=== PATIENT | male | born 1990 | race American Indian/Alaskan Native ===

== ENCOUNTER 2016-11-17 01:45 | Inpatient (IN) | payer OTHER ==
[2016-11-17] MEDS ORDERED: ZOFRAN ODT ONE (02:00)
[2016-11-17] MEDS ORDERED: ZOFRAN ODT PO ONE (02:00)
[2016-11-17 02:58] LABS: Hematocrit 48.6 % (35.5-45.6); Hemoglobin 16.2 gm/dl (11.8-15.2); Mean Corpuscular HGB Conc 33 % (32-34); Mean Corpuscular Hemoglobin 29 pg (28-32); Mean Corpuscular Volume 86 fl (84-94); Red Blood Count 5.68 M/mm3 (3.65-5.03); Red Cell Distribution Width 13.9 % (13.2-15.2)
[2016-11-17 03:08] LABS: Platelet Count 238 K/mm3 (140-440); White Blood Count 23.2 K/mm3 (4.5-11.0)
[2016-11-17 03:10] LABS: Bilirubin,Urine NEG (Negative); Blood,Urine SM (Negative); Ketones,Urine 20 mg/dL (Negative); Leukocyte Esterase,Urine NEG (Negative); Nitrite,Urine NEG (Negative); Protein,Urine <15 mg/dL mg/dL (Negative); Urobilinogen,Urine < 2.0 mg/dL (<2.0)
[2016-11-17 03:11] LABS: Alanine Aminotransferase 20 units/L (7-56); Albumin 4.9 g/dL (3.9-5); Albumin/Globulin Ratio 1.2 %; Alkaline Phosphatase 124 units/L (35-129); Anion Gap 36 mmol/L; BUN/Creatinine Ratio 22.14; Blood Urea Nitrogen 31 mg/dL (9-20); Calcium 10.9 mg/dL (8.4-10.2); Carbon Dioxide 21 mmol/L (22-30); Chloride 89.3 mmol/L (98-107); Lipase 18 units/L (13-60); Sodium 142 mmol/L (137-145); Total Protein 8.9 g/dL (6.3-8.2)
[2016-11-17 03:12] LABS: Glucose 588 mg/dL (75-100)
[2016-11-17 03:30] LABS: Basophils % (Manual) 0 % (0.0-1.8); Blastocytes % (Manual) 0 %; Eosinophils % (Manual) 0 % (0.0-4.3)
[2016-11-17 03:31] LABS: Anisocytosis 1+; Diff Status Complete; Giant Platelets Few; Hypochromasia 1+
[2016-11-17 03:32] LABS: Hypersegmented Neutrophils Few
[2016-11-17] MEDS ORDERED: NACL 0.9% 500 ML 500 ML IV ONE (03:53)
[2016-11-17] MEDS ORDERED: NACL 0.9% 1000 ML 2,000 ML ONE (03:57)
[2016-11-17] MEDS ORDERED: NACL 0.9% 1000 ML 2,000 ML IV ONE (03:57)
[2016-11-17] MEDS ORDERED: ZOFRAN ONE (04:16)
[2016-11-17] MEDS ORDERED: ZOFRAN IV ONE ×2 (04:18→05:21)
[2016-11-17 04:51] LABS: INR 1.13 (0.87-1.13)
[2016-11-17] MEDS ORDERED: D50W (25GM) IV PRN ×2 (05:17→05:54)
[2016-11-17] MEDS ORDERED: MORPHINE IV ONE (05:21)
--- NOTE | 2016-11-17 05:26 | Emergency Department Report ---
HPI - General Chief Complaint: Abdominal Pain - HPI HPI: Room 3 The patient is a 23-year-old male presenting with chief complaint of nausea vomiting abdominal pain. The patient states his symptoms began yesterday morning with inability to tolerate by mouth significant nausea. Patient states his symptoms progress dictating have periumbilical abdominal pain nausea and vomiting. The patient states he normally takes Levemir and Humalog however he ran out and did not have a refill so 2 weeks ago he picked up insulin 70/30 which she was taking prior to being changed to Levemir and Humalog. Patient states his abdominal pain feels similar to previous bouts of diabetic ketoacidosis Location: Gastrointestinal system, see above Duration: One day Quality: Pain, nausea Severity: Moderate Modifying factors: [see above] Context: [see above] Mode of transportation: Unknown ED Past Medical Hx - Past Medical History Previous Medical History?: Yes Hx Diabetes: Yes - Surgical History Past Surgical History?: No - Family History Family history: no significant - Social History Smoking Status: Never Smoker Substance Use Type: None - Medications Home Medications: Home Medications Medication Instructions Recorded Confirmed Last Taken Type Insulin Detemir [Levemir VIAL] 20 unit SQ DAILY 11/17/16 11/17/16 Unknown History Insulin Lispro [HumaLOG VIAL] 7 units SQ TID 11/17/16 11/17/16 Unknown History ED Review of Systems ROS: Stated complaint: N&V Other details as noted in HPI Comment: All other systems reviewed and negative Constitutional: denies: chills, fever Eyes: denies: eye pain, eye discharge, vision change ENT: other (dry mouth) Respiratory: denies: cough, shortness of breath, wheezing Cardiovascular: denies: chest pain, palpitations Endocrine: no symptoms reported Gastrointestinal: abdominal pain, nausea, vomiting Genitourinary: denies: urgency, dysuria Musculoskeletal: denies: back pain, joint swelling, arthralgia Skin: denies: rash, lesions Neurological: denies: headache, weakness, paresthesias Psychiatric: denies: anxiety, depression Hematological/Lymphatic: denies: easy bleeding, easy bruising Physical Exam - Physical Exam Vital Signs: Vital Signs 11/17/16 11/17/16 01:50 04:08 Temperature 99.9 F H Pulse Rate 108 H 123 H Respiratory 20 22 Rate Blood Pressure 157/100 166/88 [Right] O2 Sat by Pulse 96 98 Oximetry Physical Exam: GENERAL: The patient is well-developed well-nourished male lying on stretcher appearing to be in mild discomfort. [] HEENT: Normocephalic. Atraumatic. Extraocular motions are intact. Patient has dry mucous membranes. NECK: Supple. Trachea midline CHEST/LUNGS: Clear to auscultation. There is no respiratory distress noted. HEART/CARDIOVASCULAR: Regular. There is no tachycardia. There is no gallop rub or murmur. ABDOMEN: Abdomen is soft, nontender. Patient has normal bowel sounds. There is no abdominal distention. SKIN: There is no rash. There is no edema. There is no diaphoresis. NEURO: The patient is awake, alert, and oriented. The patient is cooperative. The patient has normal speech MUSCULOSKELETAL: There is no evidence of acute injury. ED Course Vital Signs 11/17/16 11/17/16 01:50 04:08 Temperature 99.9 F H Pulse Rate 108 H 123 H Respiratory 20 22 Rate Blood Pressure 157/100 166/88 [Right] O2 Sat by Pulse 96 98 Oximetry ED Medical Decision Making - Lab Data Result diagrams: 11/17/16 02:30 11/17/16 02:30 Laboratory Tests 11/17/16 11/17/16 11/17/16 01:55 02:30 02:30 WBC 23.2 H RBC 5.68 H Hgb 16.2 H Hct 48.6 H MCV 86 MCH 29 MCHC 33 RDW 13.9 Plt Count 238 Add Manual Diff Complete Total Counted 100 Seg Neuts % (Manual) 81.0 H Band Neutrophils % 3.0 Lymphocytes % (Manual) 7.0 L Reactive Lymphs % (Man) 0 Monocytes % (Manual) 9.0 H Eosinophils % (Manual) 0 Basophils % (Manual) 0 Metamyelocytes % 0 Myelocytes % 0 Promyelocytes % 0 Blast Cells % 0 Nucleated RBC % Not Reportable Seg Neutrophils # Man 18.8 H Band Neutrophils # 0.7 Lymphocytes # (Manual) 1.6 Abs React Lymphs (Man) 0.0 Monocytes # (Manual) 2.1 H Eosinophils # (Manual) 0.0 Basophils # (Manual) 0.0 Metamyelocytes # 0.0 Myelocytes # 0.0 Promyelocytes # 0.0 Blast Cells # 0.0 WBC Morphology Not Reportable Hypersegmented Neuts Few Hyposegmented Neuts Not Reportable Hypogranular Neuts Not Reportable Smudge Cells Not Reportable Toxic Granulation Not Reportable Toxic Vacuolation Not Reportable Dohle Bodies Not Reportable Pelger-Huet Anomaly Not Reportable [place] Rods Not Reportable Platelet Estimate Appears normal Clumped Platelets Not Reportable Plt Clumps, EDTA Not Reportable Large Platelets Not Reportable Giant Platelets Few Platelet Satelliting Not Reportable Plt Morphology Comment Not Reportable RBC Morphology Not Reportable Dimorphic RBCs Not Reportable Polychromasia Not Reportable Hypochromasia 1+ Poikilocytosis Not Reportable Anisocytosis 1+ Microcytosis Not Reportable Macrocytosis Not Reportable Spherocytes Not Reportable Pappenheimer Bodies Not Reportable Sickle Cells Not Reportable Target Cells Not Reportable Tear Drop Cells Not Reportable Ovalocytes Not Reportable Helmet Cells Not Reportable Boyle-Filer Bodies Not Reportable [place] Rings Not Reportable [place] Cells Not Reportable Bite Cells Not Reportable Crenated Cell Not Reportable Elliptocytes Not Reportable Acanthocytes (Spur) Not Reportable Rouleaux Not Reportable Hemoglobin C Crystals Not Reportable Schistocytes Not Reportable Malaria parasites Not Reportable Hayden Bodies Not Reportable Hem Pathologist Commnt No PT INR VBG pH Sodium 142 Potassium 4.0 Chloride 89.3 L Carbon Dioxide 21 L Anion Gap 36 BUN 31 H Creatinine 1.4 Estimated GFR > 60 BUN/Creatinine Ratio 22.14 Glucose 588 H* POC Glucose > 500 H Lactic Acid Calcium 10.9 H Total Bilirubin 0.40 AST 26 ALT 20 Alkaline Phosphatase 124 Total Protein 8.9 H Albumin 4.9 Albumin/Globulin Ratio 1.2 Lipase 18 Urine Color Urine Turbidity Urine pH Ur Specific [place] Urine Protein Urine Glucose (UA) Urine Ketones Urine Blood Urine Nitrite Urine Bilirubin Urine Urobilinogen Ur Leukocyte Esterase Urine WBC (Auto) Urine RBC (Auto) U Epithel Cells (Auto) 11/17/16 11/17/16 11/17/16 04:09 04:09 04:09 WBC RBC Hgb Hct MCV MCH MCHC RDW Plt Count Add Manual Diff Total Counted Seg Neuts % (Manual) Band Neutrophils % Lymphocytes % (Manual) Reactive Lymphs % (Man) Monocytes % (Manual) Eosinophils % (Manual) Basophils % (Manual) Metamyelocytes % Myelocytes % Promyelocytes % Blast Cells % Nucleated RBC % Seg Neutrophils # Man Band Neutrophils # Lymphocytes # (Manual) Abs React Lymphs (Man) Monocytes # (Manual) Eosinophils # (Manual) Basophils # (Manual) Metamyelocytes # Myelocytes # Promyelocytes # Blast Cells # WBC Morphology Hypersegmented Neuts Hyposegmented Neuts Hypogranular Neuts Smudge Cells Toxic Granulation Toxic Vacuolation Dohle Bodies Pelger-Huet Anomaly Ky Rods Platelet Estimate Clumped Platelets Plt Clumps, EDTA Large Platelets Giant Platelets Platelet Satelliting Plt Morphology Comment RBC Morphology Dimorphic RBCs Polychromasia Hypochromasia Poikilocytosis Anisocytosis Microcytosis Macrocytosis Spherocytes Pappenheimer Bodies Sickle Cells Target Cells Tear Drop Cells Ovalocytes Helmet Cells Boyle-Filer Bodies [place] Rings Valdez Cells Bite Cells Crenated Cell Elliptocytes Acanthocytes (Spur) Rouleaux Hemoglobin C Crystals Schistocytes Malaria parasites Hayden Bodies Hem Pathologist Commnt PT 14.4 INR 1.13 VBG pH 7.305 L Sodium Potassium Chloride Carbon Dioxide Anion Gap BUN Creatinine Estimated GFR BUN/Creatinine Ratio Glucose POC Glucose Lactic Acid 6.00 H* Calcium Total Bilirubin AST ALT Alkaline Phosphatase Total Protein Albumin Albumin/Globulin Ratio Lipase Urine Color Urine Turbidity Urine pH Ur Specific [place] Urine Protein Urine Glucose (UA) Urine Ketones Urine Blood Urine Nitrite Urine Bilirubin Urine Urobilinogen Ur Leukocyte Esterase Urine WBC (Auto) Urine RBC (Auto) U Epithel Cells (Auto) 11/17/16 Unknown WBC RBC Hgb Hct MCV MCH MCHC RDW Plt Count Add Manual Diff Total Counted Seg Neuts % (Manual) Band Neutrophils % Lymphocytes % (Manual) Reactive Lymphs % (Man) Monocytes % (Manual) Eosinophils % (Manual) Basophils % (Manual) Metamyelocytes % Myelocytes % Promyelocytes % Blast Cells % Nucleated RBC % Seg Neutrophils # Man Band Neutrophils # Lymphocytes # (Manual) Abs React Lymphs (Man) Monocytes # (Manual) Eosinophils # (Manual) Basophils # (Manual) Metamyelocytes # Myelocytes # Promyelocytes # Blast Cells # WBC Morphology Hypersegmented Neuts Hyposegmented Neuts Hypogranular Neuts Smudge Cells Toxic Granulation Toxic Vacuolation Dohle Bodies Pelger-Huet Anomaly Ky Rods Platelet Estimate Clumped Platelets Plt Clumps, EDTA Large Platelets Giant Platelets Platelet Satelliting Plt Morphology Comment RBC Morphology Dimorphic RBCs Polychromasia Hypochromasia Poikilocytosis Anisocytosis Microcytosis Macrocytosis Spherocytes Pappenheimer Bodies Sickle Cells Target Cells Tear Drop Cells Ovalocytes Helmet Cells Boyle-Filer Bodies [place] Rings [place]dez Cells Bite Cells Crenated Cell Elliptocytes Acanthocytes (Spur) Rouleaux Hemoglobin C Crystals Schistocytes Malaria parasites Hayden Bodies Hem Pathologist Commnt PT INR VBG pH Sodium Potassium Chloride Carbon Dioxide Anion Gap BUN Creatinine Estimated GFR BUN/Creatinine Ratio Glucose POC Glucose Lactic Acid Calcium Total Bilirubin AST ALT Alkaline Phosphatase Total Protein Albumin Albumin/Globulin Ratio Lipase Urine Color Straw Urine Turbidity Clear Urine pH 5.0 Ur Specific [place] 1.025 Urine Protein <15 mg/dl Urine Glucose (UA) >=500 Urine Ketones 20 Urine Blood Sm Urine Nitrite Neg Urine Bilirubin Neg Urine Urobilinogen < 2.0 Ur Leukocyte Esterase Neg Urine WBC (Auto) 2.0 Urine RBC (Auto) 1.0 U Epithel Cells (Auto) < 1.0 - EKG Data -: EKG Interpreted by Me EKG shows normal: sinus rhythm Rate: tachycardia (129 bpm) - EKG Data When compared to previous EKG there are: previous EKG unavailable Interpretation: other (no ischemic changes seen) - Differential Diagnosis DKA, hyperglycemia, hyperosmolar nonketotic state Critical care attestation.: If time is entered above; I have spent that time in minutes in the direct care of this critically ill patient, excluding procedure time. ED Disposition Clinical Impression: DKA (diabetic ketoacidoses) Disposition: [id number] OP ADMIT IP TO THIS HOSP Is pt being admited?: Yes Does the pt Need Aspirin: Yes Condition: Serious Instructions: Diabetic Ketoacidosis (ED) Referrals: PRIMARY CARE, [Primary Care Provider] - 3-5 Days Time of Disposition: 05:26 (hospitalist paged)
[2016-11-17] MEDS ORDERED: TYLENOL PO PRN (05:51)
[2016-11-17] MEDS ORDERED: MILK OF MAGNESIA PO PRN (05:51)
[2016-11-17] MEDS ORDERED: DULCOLAX PR PRN (05:51)
[2016-11-17] MEDS ORDERED: NACL 0.9% 1000 ML 1,000 ML IV SCH (06:00)
[2016-11-17] MEDS ORDERED: NovoLIN R 100 UNITS in NACL 0.9% 99 ML IV SCH ×2 (06:00)
[2016-11-17 06:10] LABS: Magnesium 2.4 mg/dL (1.7-2.3); Phosphorous 4.3 mg/dL (2.5-4.5)
--- NOTE | 2016-11-17 06:22 | History and Physical Report ---
History of Present Illness Date of examination: 11/17/16 History of present illness: 26-year-old man with a history of hypertension, diabetes comes emergency room with complaints of nausea vomiting, unable to tolerate oral intake. Stated vomited arm orange and then brown material. He stated he ran out of his Levemir 2 weeks ago, since then he's been taking insulin 7030. Patient stated he has not been checking his blood sugar at home. Complaints of abdominal pain , mid abdomen, dull, constant, intensity 6/10, no radiation, he cannot identify exacerbating or relieving factors. Patient denies chest pain, palpitation, shortness of breath, cough, , hematochezia, dysuria, frequency, focal weakness, dysarthria, fever chills, polydipsia polyuria, hot or cold intolerance, easy bruisability, or rash or bleeding from mucosal membrane, rhinorrhea, epistaxis, earache, tinnitus, blurry vision, eye discharge, anxiety, depression. Other review of systems negative PAST SURGICAL HISTORY: None SOCIAL HISTORY: Denies alcohol, tobacco, drugs FAMILY HISTORY: Hypertension, diabetes Medications and Allergies Allergies Allergy/AdvReac Type Severity Reaction Status Date / Time No Known Allergies Allergy Verified 11/17/16 01:56 Home Medications Medication Instructions Recorded Confirmed Last Taken Type Insulin Detemir [Levemir VIAL] 20 unit SQ DAILY 11/17/16 11/17/16 Unknown History Insulin Lispro [HumaLOG VIAL] 7 units SQ TID 11/17/16 11/17/16 Unknown History Active Meds: Active Medications Acetaminophen (Tylenol) 650 mg PO Q4H PRN PRN Reason: Pain MILD(1-3)/Fever >100.5/GABRIEL Bisacodyl (Dulcolax) 10 mg MD QDAY PRN PRN Reason: Constipation unrelieved by MOM Dextrose (D50w (25gm)) 0 ml IV ONCE PRN PRN Reason: Hypoglycemia Enoxaparin Sodium (Lovenox) 40 mg SUB-Q QDAY HUANG Ceftriaxone Sodium (Rocephin/Ns 1 Gm/50 Ml) 1 gm in 50 mls @ 100 mls/hr IV Q24H HUANG PRN Reason: Protocol Potassium Chloride/Dextrose/Sod Cl (D5w/0.45% Nacl/Kcl 20 Meq) 20 meq in 1,000 mls @ 125 mls/hr IV DIRECT HUANG Sodium Chloride (Nacl 0.9% 1000 Ml) 1,000 mls @ 150 mls/hr IV DIRECT HUANG Insulin Human Regular 100 (units/ Sodium Chloride) 100 mls @ 1 mls/hr IV TITR HUANG; 1 UNITS/HR PRN Reason: Protocol Magnesium Hydroxide (Milk Of Magnesia) 30 ml PO Q4H PRN PRN Reason: Constipation Morphine Sulfate (Morphine) 2 mg IV Q4H PRN PRN Reason: Pain, Moderate (4-6) Ondansetron HCl (Zofran) 4 mg IV Q4H PRN PRN Reason: N/V unrelieved by Reglan Exam - Physical Exam Narrative exam: Gen. appearance: Patient lying in bed, no apparent distress HEENT: Normocephalic, atraumatic, pupils equally round and reactive to light, extraocular movement intact, and no sclericterus,. No JVD or thyromegaly or nodule,neck supple, no carotid bruit ,mucous membranes moist, no exudate or erythema Heart: S1, S2, regular rate and rhythm Lungs: Clear to auscultation bilaterally, breathing comfortable Abdomen: Positive bowel sounds, tender in mid abdomen, nondistended, no organomegaly Extremity: No edema, cyanosis, clubbing Skin: No rash, nodules, warm, dry Neuro: Oriented 3, cranial nerves II-12 intact, speech is fluent, motor and sensory intact - Constitutional Vitals: Temp Pulse Resp BP Pulse Ox 99.9 F H 123 H 22 166/88 98 11/17/16 01:50 11/17/16 04:08 11/17/16 04:08 11/17/16 04:08 11/17/16 04:08 Results - Labs CBC & Chem 7: 11/17/16 02:30 11/17/16 02:30 Labs: Abnormal lab results 11/17/16 11/17/16 11/17/16 Range/Units 01:55 02:30 02:30 WBC 23.2 H (4.5-11.0) K/mm3 RBC 5.68 H (3.65-5.03) M/mm3 Hgb 16.2 H (11.8-15.2) gm/dl Hct 48.6 H (35.5-45.6) % Seg Neuts % (Manual) 81.0 H (40.0-70.0) % Lymphocytes % (Manual) 7.0 L (13.4-35.0) % Monocytes % (Manual) 9.0 H (0.0-7.3) % Seg Neutrophils # Man 18.8 H (1.8-7.7) K/mm3 Monocytes # (Manual) 2.1 H (0.0-0.8) K/mm3 VBG pH (7.320-7.420) Chloride 89.3 L (98-107) mmol/L Carbon Dioxide 21 L (22-30) mmol/L BUN 31 H (9-20) mg/dL Glucose 588 H* (75-100) mg/dL POC Glucose > 500 H (70-105) Lactic Acid (0.7-2.0) mmol/L Calcium 10.9 H (8.4-10.2) mg/dL Magnesium (1.7-2.3) mg/dL Total Protein 8.9 H (6.3-8.2) g/dL 11/17/16 11/17/16 11/17/16 Range/Units 02:30 04:09 04:09 WBC (4.5-11.0) K/mm3 RBC (3.65-5.03) M/mm3 Hgb (11.8-15.2) gm/dl Hct (35.5-45.6) % Seg Neuts % (Manual) (40.0-70.0) % Lymphocytes % (Manual) (13.4-35.0) % Monocytes % (Manual) (0.0-7.3) % Seg Neutrophils # Man (1.8-7.7) K/mm3 Monocytes # (Manual) (0.0-0.8) K/mm3 VBG pH 7.305 L (7.320-7.420) Chloride (98-107) mmol/L Carbon Dioxide (22-30) mmol/L BUN (9-20) mg/dL Glucose (75-100) mg/dL POC Glucose (70-105) Lactic Acid 6.00 H* (0.7-2.0) mmol/L Calcium (8.4-10.2) mg/dL Magnesium 2.40 H (1.7-2.3) mg/dL Total Protein (6.3-8.2) g/dL 11/17/16 Range/Units 05:39 WBC (4.5-11.0) K/mm3 RBC (3.65-5.03) M/mm3 Hgb (11.8-15.2) gm/dl Hct (35.5-45.6) % Seg Neuts % (Manual) (40.0-70.0) % Lymphocytes % (Manual) (13.4-35.0) % Monocytes % (Manual) (0.0-7.3) % Seg Neutrophils # Man (1.8-7.7) K/mm3 Monocytes # (Manual) (0.0-0.8) K/mm3 VBG pH (7.320-7.420) Chloride (98-107) mmol/L Carbon Dioxide (22-30) mmol/L BUN (9-20) mg/dL Glucose (75-100) mg/dL POC Glucose 479 H (70-105) Lactic Acid (0.7-2.0) mmol/L Calcium (8.4-10.2) mg/dL Magnesium (1.7-2.3) mg/dL Total Protein (6.3-8.2) g/dL - Imaging and Cardiology EKG: image reviewed Chest x-ray: image reviewed Assessment and Plan DKA SIRS Abdominal pain Hypertension Admit to medicine Start dka protocol with IV fluids, insulin drip Check serial chemistry, blood sugar, hemoglobin A1c Obtain blood cultures, start IV antibiotic Obtain CAT scan of the abdomen and pelvis Start IV Protonix Hold DVT prophylaxis for now, patient vomiting brown material transiently Monitor hemoglobin
[2016-11-17] MEDS: ROCEPHIN/NS 1 GM/50 ML 1 GM/50 ML BAG IV SCH (06:37)
[2016-11-17] MEDS ORDERED: PROTONIX IV ONE (06:49)
--- NOTE | 2016-11-17 06:50 | Admit Criteria Form ---
Admission Criteria Documentation: DIABETES Clinical Indications for Admission to Inpatient Care (Place 'X' for any and all applicable criteria): Admission is indicated by presence of ALL (if I & II) or ANY ONE (if III or IV) of the following (1)(2)(3)(4): [ X]I. Diabetes is uncontrolled as indicated by ANY ONE of the following: [X ]a) Diabetic ketoacidosis as indicated by ALL of the following (8): [ X]i) Hyperglycemia (eg, plasma glucose greater than 200 mg /dL (11.1 mmol/L)) [X ]ii) Acidosis (eg, arterial pH less than 7.30, serum bicarbonate level less than 15 mEq/L (mmol/L)) [ X]iii) Moderate ketonuria or ketonemia [ ]b) Hyperglycemic hyperosmolar state as indicated by ALL of the following(9)(10): [ ]i) Neurologic dysfunction (eg, stupor, coma, hemiparesis , seizure)(13) [ ]ii) Plasma glucose greater than 600 mg/dL (33.3 mmol/L) [ ]iii) Serum osmolality greater than 320 mOsm/kg (mmol/kg) [ ]c) Severe signs or symptoms secondary to hyperglycemia indicated by ANY ONE of the following: [ ]i) Altered mental status(10) [ ]ii) Significant hypovolemia or dehydration [ ]iii) Intractable nausea or vomiting [ ]iv) Unexplained fever or severe infection [ ]v) Severe electrolyte abnormality (eg, hypokalemia, hyperkalemia, hypernatremia) [ X]IXI. Management at other levels of care (Also use Diabetes: Observation Care as appropriate) is not feasible because of ANY ONE of the following: [ X]a) Condition was not adequately corrected with treatment at other levels of care. [ ]b) Treatment at other levels of care is not appropriate because of condition severity (eg, hyperosmolar coma). [ ]III. Contraindications and/or Inappropriate clinical situations for Observational Care in patients with Diabetes, when ANY ONE of the following is required: [ ]a) Patient require specific diagnostic workup or therapeutic intervention 22 [ ]b) Patient with abnormal vital signs or altered mental status 23 [ ]IV. General contraindications and/or Inappropriate clinical situations for Observational Care in patients with Diabetes, when ANY ONE of the following is required: [ ]a) Prediction of prolongation of LOS based on ANY ONE of the following may be considered as a contraindication for observational care 2, 3, 4, 5, 6, 7, 8, 9, 10, 11 [ ]i) Age > 65 yrs. [ ]ii) Patient arriving by ambulance [ ]iii) Patient with high acuity [ ]iv) Patient requiring vital sign monitoring [ ]v) Patient on IV medication [ ]b) Systolic blood pressures 180mmHg 3,12 [ ]c) Patient with altered mental status including delirium and other alteration of consciousness, (3) [ ]d) Patient whose discharge disposition will be to a correction home or rehabilitation home should not be managed in Emergency Department Observation Unit. CMS rule requires 3 days hospital stay before such placement.3,13 [ ]e) Patient with failure to thrive due to broad array of etiologies 3,16,17 [ ]f) Inability to ambulate 3,14 Extended stay beyond goal length of stay may be needed for(3)(20): [ ]a) Treatment of precipitating causes [ ]b) Development of hypoglycemia [ ]c) Complications of treatment [ ]d) Complications of decompensated diabetes (eg, acute gastric dilatation, persistent metabolic or neurologic derangement) [ ]e) Active Comorbidities [ ]f) Older patients( 65 years or older) The original [facility] content created by [employer] has been revised. The portions of the content which have been revised are identified through the use of italic text or in bold,and [facility] has neither reviewed nor approved the modified material. All other unmodified content is copyright [facility]. Please see references footnoted in the original [facility] edition 2016 Admission Criteria Met: Yes
[2016-11-17] MEDS: PROTONIX IV SCH ×2 (06:54→11:27)
--- NOTE | 2016-11-17 07:13 | Cat Scan Report ---
FINAL REPORT PROCEDURE: CT ABDOMEN PELVIS WO CON TECHNIQUE: Computerized axial tomography of the abdomen and pelvis was performed without intravenous contrast. This study is performed without intravascular contrast material and its sensitivity for abdominal and pelvic pathology, including neoplasms, inflammation, abscess, free fluid, thrombosis, arterial dissection and infarction, is reduced compared with a contrast enhanced study. HISTORY: abd pain COMPARISON: No prior studies are available for comparison. FINDINGS: Visualized lower thorax: No significant abnormality. Liver: Normal size and attenuation. Spleen: Normal size and attenuation. Gallbladder and biliary system: Normal. Pancreas: Normal. Adrenals: Normal. Kidneys: There are no kidney stones. There are no ureteral stones. There is no hydronephrosis.. GI tract: There is no bowel obstruction, colitis or enteritis. The appendix is normal.. Lymph nodes and mesentery: Normal. Vasculature: Normal. Bladder: Normal. Reproductive organs: Normal. Peritoneum: There is no ascites, free air, abscess or adenopathy.. Musculoskeletal structures: No significant abnormality. Other: None. IMPRESSION: There are no kidney stones. There are no ureteral stones. There is no hydronephrosis.. There is no bowel obstruction, colitis or enteritis. The appendix is normal.. There is no ascites, free air, abscess or adenopathy.. .
--- NOTE | 2016-11-17 07:18 | XRay Report ---
AP CHEST: HISTORY: Sepsis AP view of the chest demonstrates a normal mediastinal and cardiac contour with clear lungs and normal bony and soft tissue structures. IMPRESSION: Unremarkable AP chest.
[2016-11-17 10:10] LABS: Anion Gap 24 mmol/L; BUN/Creatinine Ratio 26.42; Blood Urea Nitrogen 37 mg/dL (9-20); Calcium 9.1 mg/dL (8.4-10.2); Carbon Dioxide 25 mmol/L (22-30); Chloride 104.3 mmol/L (98-107); Glucose 383 mg/dL (75-100); Potassium 3.5 mmol/L (3.6-5.0); Sodium 150 mmol/L (137-145)
[2016-11-17 10:54] LABS: Anion Gap 24 mmol/L; BUN/Creatinine Ratio 26.42; Blood Urea Nitrogen 37 mg/dL (9-20); Calcium 9.1 mg/dL (8.4-10.2); Carbon Dioxide 25 mmol/L (22-30); Chloride 103.7 mmol/L (98-107); Glucose 375 mg/dL (75-100); Potassium 3.5 mmol/L (3.6-5.0); Sodium 149 mmol/L (137-145)
[2016-11-17 11:14] LABS: Magnesium 2.5 mg/dL (1.7-2.3); Phosphorous 3.6 mg/dL (2.5-4.5)
[2016-11-17] MEDS: LOVENOX SUB-Q SCH (11:27)
--- NOTE | 2016-11-17 13:37 | Progress Note ---
Assessment and Plan Assessment and plan: DKA. Patient will continue on IV insulin drip until anion gap has closed. Patient will be transitioned to long-acting insulin of initially 70/30 and then to continue Levemir 20 units at bedtime. Sepsis. Patient with significant leukocytosis, lactic acidosis, fever and tachycardia. We will follow up blood and urine cultures. Continue IV antibiotics Abdominal pain. Etiology likely secondary to vomiting. CT scan is negative. Nausea and vomiting. Continue supportive care with antiemetics and IV fluid hydration. Hypertension. Resume home antihypertensive medications. History Interval history: Patient states he feels somewhat better. Patient denies any chest pain or shortness of breath. Hospitalist Physical - Constitutional Vitals: Temp Pulse Resp BP Pulse Ox 99.9 F H 113 H 22 155/72 99 11/17/16 01:50 11/17/16 12:30 11/17/16 12:30 11/17/16 12:30 11/17/16 12:30 General appearance: Present: no acute distress, well-nourished - EENT Eyes: Present: PERRL, EOM intact ENT: hearing intact, clear oral mucosa, dentition normal - Neck Neck: Present: supple, normal ROM - Respiratory Respiratory effort: normal Respiratory: bilateral: CTA - Cardiovascular Rhythm: regular Heart Sounds: Present: S1 & S2. Absent: gallop, rub - Extremities Extremities: no ischemia, No edema, Full ROM - Abdominal General gastrointestinal: soft, non-tender, non-distended, normal bowel sounds - Integumentary Integumentary: Present: clear, warm, dry - Neurologic Neurologic: CNII-XII intact, moves all extremities Results - Labs CBC & Chem 7: 11/17/16 02:30 11/17/16 10:16 Labs: Laboratory Last Values WBC 23.2 K/mm3 (4.5-11.0) H 11/17/16 02:30 RBC 5.68 M/mm3 (3.65-5.03) H 11/17/16 02:30 Hgb 16.2 gm/dl (11.8-15.2) H 11/17/16 02:30 Hct 48.6 % (35.5-45.6) H 11/17/16 02:30 MCV 86 fl (84-94) 11/17/16 02:30 MCH 29 pg (28-32) 11/17/16 02:30 MCHC 33 % (32-34) 11/17/16 02:30 RDW 13.9 % (13.2-15.2) 11/17/16 02:30 Plt Count 238 K/mm3 (140-440) 11/17/16 02:30 Add Manual Diff Complete 11/17/16 02:30 Total Counted 100 11/17/16 02:30 Seg Neuts % (Manual) 81.0 % (40.0-70.0) H 11/17/16 02:30 Band Neutrophils % 3.0 % 11/17/16 02:30 Lymphocytes % (Manual) 7.0 % (13.4-35.0) L 11/17/16 02:30 Reactive Lymphs % (Man) 0 % 11/17/16 02:30 Monocytes % (Manual) 9.0 % (0.0-7.3) H 11/17/16 02:30 Eosinophils % (Manual) 0 % (0.0-4.3) 11/17/16 02:30 Basophils % (Manual) 0 % (0.0-1.8) 11/17/16 02:30 Metamyelocytes % 0 % 11/17/16 02:30 Myelocytes % 0 % 11/17/16 02:30 Promyelocytes % 0 % 11/17/16 02:30 Blast Cells % 0 % 11/17/16 02:30 Nucleated RBC % Not Reportable 11/17/16 02:30 Seg Neutrophils # Man 18.8 K/mm3 (1.8-7.7) H 11/17/16 02:30 Band Neutrophils # 0.7 K/mm3 11/17/16 02:30 Lymphocytes # (Manual) 1.6 K/mm3 (1.2-5.4) 11/17/16 02:30 Abs React Lymphs (Man) 0.0 K/mm3 11/17/16 02:30 Monocytes # (Manual) 2.1 K/mm3 (0.0-0.8) H 11/17/16 02:30 Eosinophils # (Manual) 0.0 K/mm3 (0.0-0.4) 11/17/16 02:30 Basophils # (Manual) 0.0 K/mm3 (0.0-0.1) 11/17/16 02:30 Metamyelocytes # 0.0 K/mm3 11/17/16 02:30 Myelocytes # 0.0 K/mm3 11/17/16 02:30 Promyelocytes # 0.0 K/mm3 11/17/16 02:30 Blast Cells # 0.0 K/mm3 11/17/16 02:30 WBC Morphology Not Reportable 11/17/16 02:30 Hypersegmented Neuts Few 11/17/16 02:30 Hyposegmented Neuts Not Reportable 11/17/16 02:30 Hypogranular Neuts Not Reportable 11/17/16 02:30 Smudge Cells Not Reportable 11/17/16 02:30 Toxic Granulation Not Reportable 11/17/16 02:30 Toxic Vacuolation Not Reportable 11/17/16 02:30 Dohle Bodies Not Reportable 11/17/16 02:30 Pelger-Huet Anomaly Not Reportable 11/17/16 02:30 Ky Rods Not Reportable 11/17/16 02:30 Platelet Estimate Appears normal 11/17/16 02:30 Clumped Platelets Not Reportable 11/17/16 02:30 Plt Clumps, EDTA Not Reportable 11/17/16 02:30 Large Platelets Not Reportable 11/17/16 02:30 Giant Platelets Few 11/17/16 02:30 Platelet Satelliting Not Reportable 11/17/16 02:30 Plt Morphology Comment Not Reportable 11/17/16 02:30 RBC Morphology Not Reportable 11/17/16 02:30 Dimorphic RBCs Not Reportable 11/17/16 02:30 Polychromasia Not Reportable 11/17/16 02:30 Hypochromasia 1+ 11/17/16 02:30 Poikilocytosis Not Reportable 11/17/16 02:30 Anisocytosis 1+ 11/17/16 02:30 Microcytosis Not Reportable 11/17/16 02:30 Macrocytosis Not Reportable 11/17/16 02:30 Spherocytes Not Reportable 11/17/16 02:30 Pappenheimer Bodies Not Reportable 11/17/16 02:30 Sickle Cells Not Reportable 11/17/16 02:30 Target Cells Not Reportable 11/17/16 02:30 Tear Drop Cells Not Reportable 11/17/16 02:30 Ovalocytes Not Reportable 11/17/16 02:30 Helmet Cells Not Reportable 11/17/16 02:30 [place] Bodies Not Reportable 11/17/16 02:30 [place] Rings Not Reportable 11/17/16 02:30 [place] Cells Not Reportable 11/17/16 02:30 Bite Cells Not Reportable 11/17/16 02:30 Crenated Cell Not Reportable 11/17/16 02:30 Elliptocytes Not Reportable 11/17/16 02:30 Acanthocytes (Spur) Not Reportable 11/17/16 02:30 Rouleaux Not Reportable 11/17/16 02:30 Hemoglobin C Crystals Not Reportable 11/17/16 02:30 Schistocytes Not Reportable 11/17/16 02:30 Malaria parasites Not Reportable 11/17/16 02:30 [place] Bodies Not Reportable 11/17/16 02:30 Hem Pathologist Commnt No 11/17/16 02:30 PT 14.4 Sec. (12.2-14.9) 11/17/16 04:09 INR 1.13 (0.87-1.13) 11/17/16 04:09 VBG pH 7.305 (7.320-7.420) L 11/17/16 04:09 Sodium 149 mmol/L (137-145) H 11/17/16 10:16 Potassium 3.5 mmol/L (3.6-5.0) L 11/17/16 10:16 Chloride 103.7 mmol/L (98-107) 11/17/16 10:16 Carbon Dioxide 25 mmol/L (22-30) 11/17/16 10:16 Anion Gap 24 mmol/L 11/17/16 10:16 BUN 37 mg/dL (9-20) H 11/17/16 10:16 Creatinine 1.4 mg/dL (0.8-1.5) 11/17/16 10:16 Estimated GFR > 60 ml/min 11/17/16 10:16 BUN/Creatinine Ratio 26.42 % 11/17/16 10:16 Glucose 375 mg/dL (75-100) H 11/17/16 10:16 POC Glucose 141 (70-105) H 11/17/16 12:39 Hemoglobin A1c 8.0 % (4-6) H 11/17/16 08:52 Lactic Acid 2.00 mmol/L (0.7-2.0) 11/17/16 08:48 Calcium 9.1 mg/dL (8.4-10.2) 11/17/16 10:16 Phosphorus 3.60 mg/dL (2.5-4.5) 11/17/16 08:53 Magnesium 2.50 mg/dL (1.7-2.3) H 11/17/16 08:53 Total Bilirubin 0.40 mg/dL (0.1-1.2) 11/17/16 02:30 AST 26 units/L (5-40) 11/17/16 02:30 ALT 20 units/L (7-56) 11/17/16 02:30 Alkaline Phosphatase 124 units/L (35-129) 11/17/16 02:30 Total Protein 8.9 g/dL (6.3-8.2) H 11/17/16 02:30 Albumin 4.9 g/dL (3.9-5) 11/17/16 02:30 Albumin/Globulin Ratio 1.2 % 11/17/16 02:30 Lipase 18 units/L (13-60) 11/17/16 02:30 Urine Color Straw (Yellow) 11/17/16 Unknown Urine Turbidity Clear (Clear) 11/17/16 Unknown Urine pH 5.0 (5.0-7.0) 11/17/16 Unknown Ur Specific [place] 1.025 (1.003-1.030) 11/17/16 Unknown Urine Protein <15 mg/dl mg/dL (Negative) 11/17/16 Unknown Urine Glucose (UA) >=500 mg/dL (Negative) 11/17/16 Unknown Urine Ketones 20 mg/dL (Negative) 11/17/16 Unknown Urine Blood Sm (Negative) 11/17/16 Unknown Urine Nitrite Neg (Negative) 11/17/16 Unknown Urine Bilirubin Neg (Negative) 11/17/16 Unknown Urine Urobilinogen < 2.0 mg/dL (<2.0) 11/17/16 Unknown Ur Leukocyte Esterase Neg (Negative) 11/17/16 Unknown Urine WBC (Auto) 2.0 /HPF (0.0-6.0) 11/17/16 Unknown Urine RBC (Auto) 1.0 /HPF (0.0-6.0) 11/17/16 Unknown U Epithel Cells (Auto) < 1.0 /HPF (0-13.0) 11/17/16 Unknown
[2016-11-17] MEDS: D5W/0.45% NACL/KCL 20 MEQ 20 MEQ/1,000 ML BAG IV SCH ×2 (13:50→21:18)
[2016-11-17 17:39] LABS: Anion Gap 20 mmol/L; BUN/Creatinine Ratio 26.36; Blood Urea Nitrogen 29 mg/dL (9-20); Calcium 8.9 mg/dL (8.4-10.2); Carbon Dioxide 27 mmol/L (22-30); Chloride 101.2 mmol/L (98-107); Glucose 251 mg/dL (75-100); Potassium 4.1 mmol/L (3.6-5.0); Sodium 144 mmol/L (137-145)
[2016-11-17] MEDS: ZOFRAN IV PRN ×2 (19:38→23:30)
[2016-11-17 22:10] LABS: Anion Gap 15 mmol/L; BUN/Creatinine Ratio 27.77; Blood Urea Nitrogen 25 mg/dL (9-20); Calcium 8.8 mg/dL (8.4-10.2); Carbon Dioxide 30 mmol/L (22-30); Glucose 104 mg/dL (75-100); Potassium 3.7 mmol/L (3.6-5.0); Sodium 145 mmol/L (137-145)
[2016-11-18] MEDS: ZOFRAN IV PRN ×3 (04:04→18:19)
[2016-11-18 04:40] LABS: Hematocrit 37.4 % (35.5-45.6); Hemoglobin 12.4 gm/dl (11.8-15.2); Mean Corpuscular HGB Conc 33 % (32-34); Mean Corpuscular Hemoglobin 28 pg (28-32); Mean Corpuscular Volume 86 fl (84-94); Platelet Count 269 K/mm3 (140-440); Red Blood Count 4.36 M/mm3 (3.65-5.03)
[2016-11-18 04:52] LABS: Anion Gap 13 mmol/L; Blood Urea Nitrogen 20 mg/dL (9-20); Calcium 8.9 mg/dL (8.4-10.2); Carbon Dioxide 30 mmol/L (22-30); Chloride 106.8 mmol/L (98-107); Glucose 83 mg/dL (75-100); Potassium 3.4 mmol/L (3.6-5.0); Sodium 146 mmol/L (137-145)
[2016-11-18] MEDS: D5W/0.45% NACL/KCL 20 MEQ 20 MEQ/1,000 ML BAG IV SCH ×2 (04:55→06:30)
[2016-11-18 04:56] LABS: White Blood Count 23.5 K/mm3 (4.5-11.0)
[2016-11-18] MEDS: ROCEPHIN/NS 1 GM/50 ML 1 GM/50 ML BAG IV SCH (06:17)
[2016-11-18] MEDS: PHENERGAN PO PRN ×2 (06:30→11:30)
[2016-11-18 06:47] LABS: Anion Gap 19 mmol/L; BUN/Creatinine Ratio 23.75; Blood Urea Nitrogen 19 mg/dL (9-20); Carbon Dioxide 26 mmol/L (22-30); Chloride 104.4 mmol/L (98-107); Glucose 147 mg/dL (75-100); Potassium 4.1 mmol/L (3.6-5.0); Sodium 145 mmol/L (137-145)
[2016-11-18 06:57] LABS: Basophils % (Manual) 0 % (0.0-1.8); Blastocytes % (Manual) 0 %; Eosinophils % (Manual) 0 % (0.0-4.3)
[2016-11-18 06:58] LABS: Anisocytosis RARE; Hypochromasia Few
[2016-11-18 07:07] LABS: Diff Status Complete
[2016-11-18] MEDS ORDERED: D50W (25GM) IV PRN (09:16)
[2016-11-18] MEDS: PROTONIX IV SCH (10:32)
[2016-11-18] MEDS: LOVENOX SUB-Q SCH (10:33)
[2016-11-18] MEDS: NACL 0.9% 1000 ML 1,000 ML IV SCH (10:35)
[2016-11-18] MEDS: NOVOLOG SUB-Q SCH ×3 (11:45→23:32)
--- NOTE | 2016-11-18 13:46 | Progress Note ---
Assessment and Plan Assessment and plan: DKA. We will discontinue IV insulin drip now that anion gap has closed. Patient will be transitioned to Levemir 20 units at bedtime. Continue sliding- scale insulin and Accu-Cheks. Sepsis. We will follow up blood and urine cultures. Continue IV antibiotics Abdominal pain. Etiology likely secondary to vomiting. CT scan is negative. Nausea and vomiting. Continue supportive care with antiemetics and IV fluid hydration. Hypertension. Resume home antihypertensive medications. Disposition. Patient will be transferred to the floor. History Interval history: Patient states he feels somewhat better. Patient denies any chest pain or shortness of breath. Hospitalist Physical - Constitutional Vitals: Temp Pulse Resp BP Pulse Ox 98.7 F 113 H 11 L 130/71 96 11/18/16 08:00 11/18/16 12:20 11/18/16 12:20 11/18/16 12:20 11/18/16 12:20 General appearance: Present: no acute distress, well-nourished - EENT Eyes: Present: PERRL, EOM intact ENT: hearing intact, clear oral mucosa, dentition normal - Neck Neck: Present: supple, normal ROM - Respiratory Respiratory effort: normal Respiratory: bilateral: CTA - Cardiovascular Rhythm: regular Heart Sounds: Present: S1 & S2. Absent: gallop, rub - Extremities Extremities: no ischemia, No edema, Full ROM - Abdominal General gastrointestinal: soft, non-tender, non-distended, normal bowel sounds - Integumentary Integumentary: Present: clear, warm, dry - Neurologic Neurologic: CNII-XII intact, moves all extremities Results - Labs CBC & Chem 7: 11/18/16 04:10 11/18/16 06:04 Labs: Laboratory Last Values WBC 23.5 K/mm3 (4.5-11.0) H 11/18/16 04:10 RBC 4.36 M/mm3 (3.65-5.03) 11/18/16 04:10 Hgb 12.4 gm/dl (11.8-15.2) D 11/18/16 04:10 Hct 37.4 % (35.5-45.6) D 11/18/16 04:10 MCV 86 fl (84-94) 11/18/16 04:10 MCH 28 pg (28-32) 11/18/16 04:10 MCHC 33 % (32-34) 11/18/16 04:10 RDW 14.0 % (13.2-15.2) 11/18/16 04:10 Plt Count 269 K/mm3 (140-440) 11/18/16 04:10 Add Manual Diff Complete 11/18/16 04:10 Total Counted 100 11/18/16 04:10 Seg Neuts % (Manual) 78.0 % (40.0-70.0) H 11/18/16 04:10 Band Neutrophils % 0 % 11/18/16 04:10 Lymphocytes % (Manual) 15.0 % (13.4-35.0) 11/18/16 04:10 Reactive Lymphs % (Man) 0 % 11/18/16 04:10 Monocytes % (Manual) 6.0 % (0.0-7.3) 11/18/16 04:10 Eosinophils % (Manual) 0 % (0.0-4.3) 11/18/16 04:10 Basophils % (Manual) 0 % (0.0-1.8) 11/18/16 04:10 Metamyelocytes % 1.0 % 11/18/16 04:10 Myelocytes % 0 % 11/18/16 04:10 Promyelocytes % 0 % 11/18/16 04:10 Blast Cells % 0 % 11/18/16 04:10 Nucleated RBC % Not Reportable 11/18/16 04:10 Seg Neutrophils # Man 18.3 K/mm3 (1.8-7.7) H 11/18/16 04:10 Band Neutrophils # 0.0 K/mm3 11/18/16 04:10 Lymphocytes # (Manual) 3.5 K/mm3 (1.2-5.4) 11/18/16 04:10 Abs React Lymphs (Man) 0.0 K/mm3 11/18/16 04:10 Monocytes # (Manual) 1.4 K/mm3 (0.0-0.8) H 11/18/16 04:10 Eosinophils # (Manual) 0.0 K/mm3 (0.0-0.4) 11/18/16 04:10 Basophils # (Manual) 0.0 K/mm3 (0.0-0.1) 11/18/16 04:10 Metamyelocytes # 0.2 K/mm3 11/18/16 04:10 Myelocytes # 0.0 K/mm3 11/18/16 04:10 Promyelocytes # 0.0 K/mm3 11/18/16 04:10 Blast Cells # 0.0 K/mm3 11/18/16 04:10 WBC Morphology Not Reportable 11/18/16 04:10 Hypersegmented Neuts Not Reportable 11/18/16 04:10 Hyposegmented Neuts Not Reportable 11/18/16 04:10 Hypogranular Neuts Not Reportable 11/18/16 04:10 Smudge Cells Not Reportable 11/18/16 04:10 Toxic Granulation Not Reportable 11/18/16 04:10 Toxic Vacuolation Not Reportable 11/18/16 04:10 Dohle Bodies Not Reportable 11/18/16 04:10 Pelger-Huet Anomaly Not Reportable 11/18/16 04:10 Ky Rods Not Reportable 11/18/16 04:10 Platelet Estimate Appears normal 11/18/16 04:10 Clumped Platelets Not Reportable 11/18/16 04:10 Plt Clumps, EDTA Not Reportable 11/18/16 04:10 Large Platelets Not Reportable 11/18/16 04:10 Giant Platelets Not Reportable 11/18/16 04:10 Platelet Satelliting Not Reportable 11/18/16 04:10 Plt Morphology Comment Not Reportable 11/18/16 04:10 RBC Morphology Not Reportable 11/18/16 04:10 Dimorphic RBCs Not Reportable 11/18/16 04:10 Polychromasia Not Reportable 11/18/16 04:10 Hypochromasia Few 11/18/16 04:10 Poikilocytosis Not Reportable 11/18/16 04:10 Anisocytosis Rare 11/18/16 04:10 Microcytosis Not Reportable 11/18/16 04:10 Macrocytosis Not Reportable 11/18/16 04:10 Spherocytes Not Reportable 11/18/16 04:10 Pappenheimer Bodies Not Reportable 11/18/16 04:10 Sickle Cells Not Reportable 11/18/16 04:10 Target Cells Not Reportable 11/18/16 04:10 Tear Drop Cells Not Reportable 11/18/16 04:10 Ovalocytes Not Reportable 11/18/16 04:10 Helmet Cells Not Reportable 11/18/16 04:10 [place] Bodies Not Reportable 11/18/16 04:10 [place] Rings Not Reportable 11/18/16 04:10 [place] Cells Not Reportable 11/18/16 04:10 Bite Cells Not Reportable 11/18/16 04:10 Crenated Cell Not Reportable 11/18/16 04:10 Elliptocytes Not Reportable 11/18/16 04:10 Acanthocytes (Spur) Not Reportable 11/18/16 04:10 Rouleaux Not Reportable 11/18/16 04:10 Hemoglobin C Crystals Not Reportable 11/18/16 04:10 Schistocytes Not Reportable 11/18/16 04:10 Malaria parasites Not Reportable 11/18/16 04:10 [place] Bodies Not Reportable 11/18/16 04:10 Hem Pathologist Commnt No 11/18/16 04:10 PT 14.4 Sec. (12.2-14.9) 11/17/16 04:09 INR 1.13 (0.87-1.13) 11/17/16 04:09 VBG pH 7.305 (7.320-7.420) L 11/17/16 04:09 Sodium 145 mmol/L (137-145) 11/18/16 06:04 Potassium 4.1 mmol/L (3.6-5.0) D 11/18/16 06:04 Chloride 104.4 mmol/L (98-107) 11/18/16 06:04 Carbon Dioxide 26 mmol/L (22-30) 11/18/16 06:04 Anion Gap 19 mmol/L 11/18/16 06:04 BUN 19 mg/dL (9-20) 11/18/16 06:04 Creatinine 0.8 mg/dL (0.8-1.5) 11/18/16 06:04 Estimated GFR > 60 ml/min 11/18/16 06:04 BUN/Creatinine Ratio 23.75 % 11/18/16 06:04 Glucose 147 mg/dL (75-100) H 11/18/16 06:04 POC Glucose 108 (70-105) H 11/18/16 11:14 Hemoglobin A1c 8.0 % (4-6) H 11/17/16 08:52 Lactic Acid 2.00 mmol/L (0.7-2.0) 11/17/16 08:48 Calcium 9.0 mg/dL (8.4-10.2) 11/18/16 06:04 Phosphorus 3.60 mg/dL (2.5-4.5) 11/17/16 08:53 Magnesium 2.50 mg/dL (1.7-2.3) H 11/17/16 08:53 Total Bilirubin 0.40 mg/dL (0.1-1.2) 11/17/16 02:30 AST 26 units/L (5-40) 11/17/16 02:30 ALT 20 units/L (7-56) 11/17/16 02:30 Alkaline Phosphatase 124 units/L (35-129) 11/17/16 02:30 Total Protein 8.9 g/dL (6.3-8.2) H 11/17/16 02:30 Albumin 4.9 g/dL (3.9-5) 11/17/16 02:30 Albumin/Globulin Ratio 1.2 % 11/17/16 02:30 Lipase 18 units/L (13-60) 11/17/16 02:30 Urine Color Straw (Yellow) 11/17/16 Unknown Urine Turbidity Clear (Clear) 11/17/16 Unknown Urine pH 5.0 (5.0-7.0) 11/17/16 Unknown Ur Specific [place] 1.025 (1.003-1.030) 11/17/16 Unknown Urine Protein <15 mg/dl mg/dL (Negative) 11/17/16 Unknown Urine Glucose (UA) >=500 mg/dL (Negative) 11/17/16 Unknown Urine Ketones 20 mg/dL (Negative) 11/17/16 Unknown Urine Blood Sm (Negative) 11/17/16 Unknown Urine Nitrite Neg (Negative) 11/17/16 Unknown Urine Bilirubin Neg (Negative) 11/17/16 Unknown Urine Urobilinogen < 2.0 mg/dL (<2.0) 11/17/16 Unknown Ur Leukocyte Esterase Neg (Negative) 11/17/16 Unknown Urine WBC (Auto) 2.0 /HPF (0.0-6.0) 11/17/16 Unknown Urine RBC (Auto) 1.0 /HPF (0.0-6.0) 11/17/16 Unknown U Epithel Cells (Auto) < 1.0 /HPF (0-13.0) 11/17/16 Unknown
--- NOTE | 2016-11-18 14:51 | Event Note ---
Date: 11/18/16 Asked to see for ICU admission re: DKA and need for IV insulin therapy AG closed in ER and off IV insulin A&P: - does not meet ICU criteria any longer - please reconsult as necessary
[2016-11-18] MEDS: MORPHINE IV PRN ×2 (18:18→23:32)
[2016-11-18] MEDS: LEVEMIR SUB-Q SCH (23:31)
[2016-11-19] MEDS: NACL 0.9% 1000 ML 1,000 ML IV SCH ×2 (03:25→17:20)
[2016-11-19] MEDS: ROCEPHIN/NS 1 GM/50 ML 1 GM/50 ML BAG IV SCH (05:05)
[2016-11-19] MEDS: NOVOLOG SUB-Q SCH ×4 (08:54→22:55)
[2016-11-19] MEDS: LOVENOX SUB-Q SCH (09:28)
[2016-11-19] MEDS: PROTONIX IV SCH (09:28)
[2016-11-19 09:29] LABS: Basophils % (Auto) 0.5 % (0.0-1.8); Eosinophils % (Auto) 0.2 % (0.0-4.3); Hematocrit 39.4 % (35.5-45.6); Hemoglobin 13.2 gm/dl (11.8-15.2); Mean Corpuscular HGB Conc 34 % (32-34); Mean Corpuscular Hemoglobin 29 pg (28-32); Mean Corpuscular Volume 85 fl (84-94); Platelet Count 284 K/mm3 (140-440); Red Blood Count 4.62 M/mm3 (3.65-5.03); Red Cell Distribution Width 13.6 % (13.2-15.2); White Blood Count 13.8 K/mm3 (4.5-11.0)
--- NOTE | 2016-11-19 09:54 | Progress Note ---
Assessment and Plan Assessment and plan: DKA. Resolved. Continue Levemir 20 units at bedtime. Continue sliding-scale insulin and Accu-Cheks. Sepsis. Resolving. We will follow up blood and urine cultures. Continue IV antibiotics Abdominal pain. Etiology likely secondary to vomiting. CT scan is negative. Check lipase levels. Nausea and vomiting. No new episodes. Continue supportive care with antiemetics and IV fluid hydration. Hypertension. Resume home antihypertensive medications. Disposition. Patient will be transferred to the floor. History Interval history: Patient complains of midepigastric pain. Hospitalist Physical - Constitutional Vitals: Temp Pulse Resp BP Pulse Ox 98.8 F 94 H 18 156/89 99 11/19/16 07:10 11/19/16 07:10 11/19/16 07:10 11/19/16 07:10 11/19/16 07:10 General appearance: Present: no acute distress, well-nourished - EENT Eyes: Present: PERRL, EOM intact ENT: hearing intact, clear oral mucosa, dentition normal - Neck Neck: Present: supple, normal ROM - Respiratory Respiratory effort: normal Respiratory: bilateral: CTA - Cardiovascular Rhythm: regular Heart Sounds: Present: S1 & S2. Absent: gallop, rub - Extremities Extremities: no ischemia, No edema, Full ROM - Abdominal General gastrointestinal: soft, tender, non-distended, normal bowel sounds Localized gastrointestinal: tender: epigastric periumbilical (mild) - Integumentary Integumentary: Present: clear, warm, dry - Neurologic Neurologic: CNII-XII intact, moves all extremities Results - Labs CBC & Chem 7: 11/19/16 09:15 11/18/16 06:04 Labs: Laboratory Last Values WBC 13.8 K/mm3 (4.5-11.0) H 11/19/16 09:15 RBC 4.62 M/mm3 (3.65-5.03) 11/19/16 09:15 Hgb 13.2 gm/dl (11.8-15.2) 11/19/16 09:15 Hct 39.4 % (35.5-45.6) 11/19/16 09:15 MCV 85 fl (84-94) 11/19/16 09:15 MCH 29 pg (28-32) 11/19/16 09:15 MCHC 34 % (32-34) 11/19/16 09:15 RDW 13.6 % (13.2-15.2) 11/19/16 09:15 Plt Count 284 K/mm3 (140-440) 11/19/16 09:15 Lymph % (Auto) 17.1 % (13.4-35.0) 11/19/16 09:15 [place] % (Auto) 6.5 % (0.0-7.3) 11/19/16 09:15 Eos % (Auto) 0.2 % (0.0-4.3) 11/19/16 09:15 Baso % (Auto) 0.5 % (0.0-1.8) 11/19/16 09:15 Lymph # 2.4 K/mm3 (1.2-5.4) 11/19/16 09:15 [place] # 0.9 K/mm3 (0.0-0.8) H 11/19/16 09:15 Eos # 0.0 K/mm3 (0.0-0.4) 11/19/16 09:15 Baso # 0.1 K/mm3 (0.0-0.1) 11/19/16 09:15 Add Manual Diff Complete 11/18/16 04:10 Total Counted 100 11/18/16 04:10 Seg Neutrophils % 75.7 % (40.0-70.0) H 11/19/16 09:15 Seg Neuts % (Manual) 78.0 % (40.0-70.0) H 11/18/16 04:10 Band Neutrophils % 0 % 11/18/16 04:10 Lymphocytes % (Manual) 15.0 % (13.4-35.0) 11/18/16 04:10 Reactive Lymphs % (Man) 0 % 11/18/16 04:10 Monocytes % (Manual) 6.0 % (0.0-7.3) 11/18/16 04:10 Eosinophils % (Manual) 0 % (0.0-4.3) 11/18/16 04:10 Basophils % (Manual) 0 % (0.0-1.8) 11/18/16 04:10 Metamyelocytes % 1.0 % 11/18/16 04:10 Myelocytes % 0 % 11/18/16 04:10 Promyelocytes % 0 % 11/18/16 04:10 Blast Cells % 0 % 11/18/16 04:10 Nucleated RBC % Not Reportable 11/18/16 04:10 Seg Neutrophils # 10.5 K/mm3 (1.8-7.7) H 11/19/16 09:15 Seg Neutrophils # Man 18.3 K/mm3 (1.8-7.7) H 11/18/16 04:10 Band Neutrophils # 0.0 K/mm3 11/18/16 04:10 Lymphocytes # (Manual) 3.5 K/mm3 (1.2-5.4) 11/18/16 04:10 Abs React Lymphs (Man) 0.0 K/mm3 11/18/16 04:10 Monocytes # (Manual) 1.4 K/mm3 (0.0-0.8) H 11/18/16 04:10 Eosinophils # (Manual) 0.0 K/mm3 (0.0-0.4) 11/18/16 04:10 Basophils # (Manual) 0.0 K/mm3 (0.0-0.1) 11/18/16 04:10 Metamyelocytes # 0.2 K/mm3 11/18/16 04:10 Myelocytes # 0.0 K/mm3 11/18/16 04:10 Promyelocytes # 0.0 K/mm3 11/18/16 04:10 Blast Cells # 0.0 K/mm3 11/18/16 04:10 WBC Morphology Not Reportable 11/18/16 04:10 Hypersegmented Neuts Not Reportable 11/18/16 04:10 Hyposegmented Neuts Not Reportable 11/18/16 04:10 Hypogranular Neuts Not Reportable 11/18/16 04:10 Smudge Cells Not Reportable 11/18/16 04:10 Toxic Granulation Not Reportable 11/18/16 04:10 Toxic Vacuolation Not Reportable 11/18/16 04:10 Dohle Bodies Not Reportable 11/18/16 04:10 Pelger-Huet Anomaly Not Reportable 11/18/16 04:10 Ky Rods Not Reportable 11/18/16 04:10 Platelet Estimate Appears normal 11/18/16 04:10 Clumped Platelets Not Reportable 11/18/16 04:10 Plt Clumps, EDTA Not Reportable 11/18/16 04:10 Large Platelets Not Reportable 11/18/16 04:10 Giant Platelets Not Reportable 11/18/16 04:10 Platelet Satelliting Not Reportable 11/18/16 04:10 Plt Morphology Comment Not Reportable 11/18/16 04:10 RBC Morphology Not Reportable 11/18/16 04:10 Dimorphic RBCs Not Reportable 11/18/16 04:10 Polychromasia Not Reportable 11/18/16 04:10 Hypochromasia Few 11/18/16 04:10 Poikilocytosis Not Reportable 11/18/16 04:10 Anisocytosis Rare 11/18/16 04:10 Microcytosis Not Reportable 11/18/16 04:10 Macrocytosis Not Reportable 11/18/16 04:10 Spherocytes Not Reportable 11/18/16 04:10 Pappenheimer Bodies Not Reportable 11/18/16 04:10 Sickle Cells Not Reportable 11/18/16 04:10 Target Cells Not Reportable 11/18/16 04:10 Tear Drop Cells Not Reportable 11/18/16 04:10 Ovalocytes Not Reportable 11/18/16 04:10 Helmet Cells Not Reportable 11/18/16 04:10 [place] Bodies Not Reportable 11/18/16 04:10 [place] Rings Not Reportable 11/18/16 04:10 [place] Cells Not Reportable 11/18/16 04:10 Bite Cells Not Reportable 11/18/16 04:10 Crenated Cell Not Reportable 11/18/16 04:10 Elliptocytes Not Reportable 11/18/16 04:10 Acanthocytes (Spur) Not Reportable 11/18/16 04:10 Rouleaux Not Reportable 11/18/16 04:10 Hemoglobin C Crystals Not Reportable 11/18/16 04:10 Schistocytes Not Reportable 11/18/16 04:10 Malaria parasites Not Reportable 11/18/16 04:10 [place] Bodies Not Reportable 11/18/16 04:10 Hem Pathologist Commnt No 11/18/16 04:10 PT 14.4 Sec. (12.2-14.9) 11/17/16 04:09 INR 1.13 (0.87-1.13) 11/17/16 04:09 VBG pH 7.305 (7.320-7.420) L 11/17/16 04:09 Sodium 145 mmol/L (137-145) 11/18/16 06:04 Potassium 4.1 mmol/L (3.6-5.0) D 11/18/16 06:04 Chloride 104.4 mmol/L (98-107) 11/18/16 06:04 Carbon Dioxide 26 mmol/L (22-30) 11/18/16 06:04 Anion Gap 19 mmol/L 11/18/16 06:04 BUN 19 mg/dL (9-20) 11/18/16 06:04 Creatinine 0.8 mg/dL (0.8-1.5) 11/18/16 06:04 Estimated GFR > 60 ml/min 11/18/16 06:04 BUN/Creatinine Ratio 23.75 % 11/18/16 06:04 Glucose 147 mg/dL (75-100) H 11/18/16 06:04 POC Glucose 130 (70-105) H 11/19/16 06:41 Hemoglobin A1c 8.0 % (4-6) H 11/17/16 08:52 Lactic Acid 2.00 mmol/L (0.7-2.0) 11/17/16 08:48 Calcium 9.0 mg/dL (8.4-10.2) 11/18/16 06:04 Phosphorus 3.60 mg/dL (2.5-4.5) 11/17/16 08:53 Magnesium 2.50 mg/dL (1.7-2.3) H 11/17/16 08:53 Total Bilirubin 0.40 mg/dL (0.1-1.2) 11/17/16 02:30 AST 26 units/L (5-40) 11/17/16 02:30 ALT 20 units/L (7-56) 11/17/16 02:30 Alkaline Phosphatase 124 units/L (35-129) 11/17/16 02:30 Total Protein 8.9 g/dL (6.3-8.2) H 11/17/16 02:30 Albumin 4.9 g/dL (3.9-5) 11/17/16 02:30 Albumin/Globulin Ratio 1.2 % 11/17/16 02:30 Lipase 18 units/L (13-60) 11/17/16 02:30 Urine Color Straw (Yellow) 11/17/16 Unknown Urine Turbidity Clear (Clear) 11/17/16 Unknown Urine pH 5.0 (5.0-7.0) 11/17/16 Unknown Ur Specific [place] 1.025 (1.003-1.030) 11/17/16 Unknown Urine Protein <15 mg/dl mg/dL (Negative) 11/17/16 Unknown Urine Glucose (UA) >=500 mg/dL (Negative) 11/17/16 Unknown Urine Ketones 20 mg/dL (Negative) 11/17/16 Unknown Urine Blood Sm (Negative) 11/17/16 Unknown Urine Nitrite Neg (Negative) 11/17/16 Unknown Urine Bilirubin Neg (Negative) 11/17/16 Unknown Urine Urobilinogen < 2.0 mg/dL (<2.0) 11/17/16 Unknown Ur Leukocyte Esterase Neg (Negative) 11/17/16 Unknown Urine WBC (Auto) 2.0 /HPF (0.0-6.0) 11/17/16 Unknown Urine RBC (Auto) 1.0 /HPF (0.0-6.0) 11/17/16 Unknown U Epithel Cells (Auto) < 1.0 /HPF (0-13.0) 11/17/16 Unknown
[2016-11-19] MEDS: MORPHINE IV PRN (12:52)
[2016-11-19] MEDS: LEVEMIR SUB-Q SCH (22:55)
[2016-11-20] MEDS: ROCEPHIN/NS 1 GM/50 ML 1 GM/50 ML BAG IV SCH (05:37)
[2016-11-20] MEDS: NOVOLOG SUB-Q SCH ×4 (08:47→21:47)
--- NOTE | 2016-11-20 08:48 | Discharge Summary ---
Providers - Providers Date of Admission: 11/17/16 05:51 Date of discharge: 11/21/16 Attending physician: MAGI CLARK Primary care physician: [employer] Hospitalization Reason for admission: DKA Condition: Serious Hospital course: 26-year-old man with a history of hypertension, diabetes comes emergency room with complaints of nausea vomiting, unable to tolerate oral intake. Patient stated that he ran out of his Levemir 2 weeks prior to admission. Patient also reported that he had not been taking his blood sugars at home. Patient complained of abdominal pain in the mid abdomen of a dull character that he described as constant 6/10 in intensity. Patient denied any exacerbating or alleviating factors. Patient was evaluated with a CT scan of the abdomen which showed no acute findings. Etiology likely secondary to gastritis or pain from vomiting. Patient did have a significant leukocytosis on admission and given a diagnosis of sepsis. Patient was treated with IV antibiotics. Blood cultures however remain negative. Patient has slow but significant improvement throughout hospitalization. Patient was initially placed on insulin drip and then later transitioned back to his long-acting insulin of Levemir. Patient's blood sugar stabilized. Prior to discharge, pt. had an episode of N/V. Reglan was added to the patient's regimen. Patient's symptoms resolved. Patient was also treated with Protonix with stabilization of his abdominal symptoms. Patient was felt to have received maximal hospital benefit. Dedicated discharge time 35 minutes. Disposition: DC-01 TO HOME OR SELFCARE Time spent for discharge: 35 - Discharge Diagnoses (1) HTN (hypertension) Status: Acute Qualifiers: Hypertension type: H (2) Gastritis Status: Acute Qualifiers: Gastritis type: G Chronicity: C Gastritis bleeding: G (3) DKA (diabetic ketoacidoses) Status: Acute Qualifiers: Diabetes mellitus type: D Diabetes mellitus complication detail: D Core Measure Documentation - Palliative Care Palliative Care/ Comfort Measures: Not Applicable - Core Measures Any of the following diagnoses?: none Exam - Constitutional Vitals: Temp Pulse Resp BP Pulse Ox 99.1 F 106 H 20 177/109 97 11/19/16 23:20 11/19/16 23:20 11/19/16 23:20 11/19/16 23:20 11/19/16 23:20 General appearance: Present: no acute distress, well-nourished - EENT Eyes: Present: PERRL ENT: hearing intact, clear oral mucosa - Neck Neck: Present: supple, normal ROM - Respiratory Respiratory effort: normal Respiratory: bilateral: CTA - Cardiovascular Heart Sounds: Present: S1 & S2. Absent: rub, click - Extremities Extremities: pulses symmetrical, No edema Peripheral Pulses: within normal limits - Abdominal General gastrointestinal: Present: soft, non-tender, non-distended, normal bowel sounds Male genitourinary: Present: normal - Integumentary Integumentary: Present: clear, warm, dry - Musculoskeletal Musculoskeletal: gait normal, strength equal bilaterally - Psychiatric Psychiatric: appropriate mood/affect, intact judgment & insight - Neurologic Neurologic: CNII-XII intact, moves all extremities Plan Activity: no restrictions Weight Bearing Status: Full Weight Bearing Diet: diabetic Follow up with: PRIMARY CARE, [Primary Care Provider] - 3-5 Days Prescriptions: Insulin Detemir [Levemir] 20 units SUB-Q QHS #30 units Insulin Lispro [HumaLOG VIAL] 7 units SQ TID #30 vial Labetalol [Normodyne TAB] 200 mg PO BID #60 tablet Pantoprazole [Protonix TAB] 40 mg PO DAILY #30 tablet
[2016-11-20] MEDS: PROTONIX PO SCH (09:35)
[2016-11-20] MEDS: LOVENOX SUB-Q SCH (09:35)
[2016-11-20] MEDS: NORMODYNE PO SCH ×2 (11:57→21:36)
[2016-11-20] MEDS: ZOFRAN IV PRN (14:07)
[2016-11-20] MEDS ORDERED: REGLAN IV PRN (14:42)
[2016-11-20] MEDS: NACL 0.9% 1000 ML 1,000 ML IV SCH (17:00)
[2016-11-20] MEDS: LEVEMIR SUB-Q SCH (21:47)
[2016-11-21] MEDS: NACL 0.9% 1000 ML 1,000 ML IV SCH (06:31)
[2016-11-21] MEDS: ROCEPHIN/NS 1 GM/50 ML 1 GM/50 ML BAG IV SCH (06:32)
[2016-11-21] MEDS: NOVOLOG SUB-Q SCH ×2 (06:37→13:06)
[2016-11-21] MEDS: PROTONIX PO SCH (09:27)
[2016-11-21] MEDS: LOVENOX SUB-Q SCH (09:27)
[2016-11-21] MEDS: NORMODYNE PO SCH (09:28)
--- NOTE | 2016-11-21 10:19 | Progress Note ---
Assessment and Plan DKA. Resolved. Continue Levemir 20 units at bedtime. Continue sliding-scale insulin and Accu-Cheks. Sepsis. Resolving. We will follow up blood and urine cultures. Continue IV antibiotics Abdominal pain. Etiology likely secondary to vomiting. CT scan is negative. Check lipase levels. Nausea and vomiting. Start Reglan. Continue supportive care with antiemetics and IV fluid hydration. Hypertension. Resume home antihypertensive medications. Disposition. Patient will be transferred to the floor. - Patient Problems (1) HTN (hypertension) Current Visit: Yes Status: Acute Qualifiers: Hypertension type: H (2) Gastritis Current Visit: Yes Status: Acute Qualifiers: Gastritis type: G Chronicity: C Gastritis bleeding: G (3) DKA (diabetic ketoacidoses) Current Visit: Yes Status: Acute Qualifiers: Diabetes mellitus type: D Diabetes mellitus complication detail: D Subjective Date of service: 11/20/16 Interval history: Patient complains of N/V x 3 Objective - Constitutional Vitals: Vital Signs - 12hr 11/21/16 11/21/16 11/21/16 00:15 08:00 09:28 Temperature 98.9 F 99.3 F Pulse Rate [ 91 H 82 Right Dorsalis Pedis] Respiratory 18 18 Rate Blood Pressure 134/78 Blood Pressure 177/91 134/78 [Right Arm] O2 Sat by Pulse 100 98 Oximetry General appearance: Present: no acute distress, well-nourished - EENT Eyes: PERRL, EOM intact ENT: hearing intact, clear oral mucosa Ears: bilateral: normal - Neck Neck: supple, normal ROM - Respiratory Respiratory effort: normal Respiratory: bilateral: CTA - Breasts Breasts: normal - Cardiovascular Rhythm: regular Heart Sounds: Present: S1 & S2. Absent: gallop, rub Extremities: pulses intact, No edema, normal color, Full ROM - Gastrointestinal General gastrointestinal: Present: soft, non-tender, non-distended, normal bowel sounds - Genitourinary Male genitourinary: normal - Integumentary Integumentary: clear, warm, dry - Musculoskeletal Musculoskeletal: 1, strength equal bilaterally - Neurologic Neurologic: moves all extremities - Psychiatric Psychiatric: memory intact, appropriate mood/affect, intact judgment & insight - Labs CBC & Chem 7: 11/19/16 09:15 11/18/16 06:04 Labs: Abnormal lab results 0611/20/16 11/20/16 Range/Units 11:50 16:50 21:31 POC Glucose 215 H 312 H 201 H (70-105) 11/21/16 Range/Units 05:54 POC Glucose 280 H (70-105)
[2016-11-21 13:23] VITALS: BP 154/84
== END 2016-11-21 13:05 | disposition home or self-care (01) | DRG 871 ==
LOC: ED 01:45 → CC1 05:51 → 3A 11-18 12:07
PROVIDERS: ADMIT Internal Medicine; ATTEND Hospitalist
DX: A41.9 Sepsis, unspecified organism (principal); E13.10 Other specified diabetes mellitus with ketoacidosis without coma; R65.10 Systemic inflammatory response syndrome (SIRS) of non-infectious origin without acute organ dysfunction; I10 Essential (primary) hypertension; K29.70 Gastritis, unspecified, without bleeding; Z91.14 Patient's other noncompliance with medication regimen; Z79.4 Long term (current) use of insulin; Z83.3 Family history of diabetes mellitus; Z82.49 Family history of ischemic heart disease and other diseases of the circulatory system
CPT/HCPCS: 36415; 71010; 74176; 80048; 80053; 81001; 82140; 82805; 82962; 83036; 83690; 83735; 84100; 85007; 85025; 85610; 87040; 87086; 93005; 93010; 96361; 96374; 96375; 96376; C9113; J0696; J1650; J1815; J1818; J2270; J2405; J2765; J7030; Q0162; Q0169

== ENCOUNTER 2016-12-29 17:28 | Emergency (ER) | payer SELFPAY ==
[2016-12-29 18:26] LABS: Basophils % (Auto) 0.3 % (0.0-1.8); Eosinophils % (Auto) 1.1 % (0.0-4.3); Hematocrit 25.3 % (35.5-45.6); Hemoglobin 8.7 gm/dl (11.8-15.2); Mean Corpuscular HGB Conc 34 % (32-34); Mean Corpuscular Hemoglobin 30 pg (28-32); Mean Corpuscular Volume 88 fl (84-94); Platelet Count 432 K/mm3 (140-440); Red Blood Count 2.87 M/mm3 (3.65-5.03); Red Cell Distribution Width 14.8 % (13.2-15.2)
[2016-12-29 18:42] LABS: Alanine Aminotransferase 14 units/L (7-56); Albumin 4.1 g/dL (3.9-5); Albumin/Globulin Ratio 1.5 %; Alkaline Phosphatase 83 units/L (35-129); Anion Gap 21 mmol/L; Blood Urea Nitrogen 9 mg/dL (9-20); Carbon Dioxide 25 mmol/L (22-30); Chloride 94.6 mmol/L (98-107); Glucose 346 mg/dL (75-100); Potassium 4.3 mmol/L (3.6-5.0); Sodium 136 mmol/L (137-145); Total Protein 6.9 g/dL (6.3-8.2)
--- NOTE | 2016-12-29 20:22 | Cat Scan Report ---
FINAL REPORT PROCEDURE: CT HEAD/BRAIN WO CON TECHNIQUE: Computerized tomography of the head was performed without contrast material. HISTORY: feel and hit head on concrete COMPARISON: No prior studies are available for comparison. FINDINGS: Brain: Brain density appears normal. No evidence of intracranial hemorrhage. No parenchymal hemorrhage, mass lesions or mass effect are seen. No abnormal extraxial fluid collects or masses are seen. Ventricles: Ventricles are normal size and are midline. Bone Windows: No evidence of skull fracture.Small scalp hematoma suspected right side of the forehead. Paranasal sinuses: Small scalp hematoma suspected left side of the forehead. Mastoid air cells: Clear IMPRESSION: Small scalp hematoma suspected. No evidence of intracranial hemorrhage or skull fracture.
[2016-12-30] MEDS ORDERED: NACL 0.9% 1000 ML 2,000 ML IV ONE (01:11)
[2016-12-30] MEDS ORDERED: NORCO 5/325 PO ONE (01:22)
--- NOTE | 2016-12-30 01:26 | Emergency Department Report ---
HPI - General Chief Complaint: Syncope Time Seen by Provider: 12/30/16 01:21 - HPI HPI: The patient is a 26-year-old male with a history of diabetes, whom presents for evaluation of lightheadedness and headache. The patient reports constant aching headache for the past 4 days, frontal in location, exacerbated with bright lights. He states that he has expressed a headache since a fall to the ground 4 days ago. He states that he fell secondary to a syncopal episode the passing out. He shares that he has experienced transient moderate severity lightheadedness also for the past 4 days, exacerbated with standing or ambulation, and improved with lying flat and rest. He admits to polyuria and minimal water consumption despite consistent with being thirsty secondary to his diabetes. The patient denies fever, neck pain or stiffness, paresthesias, focal motor weakness, blurry vision, ear pain, tinnitus, chest pain, hemoptysis , dyspnea, abdominal pain, confusion or altered mental status, or recent URI or diarrhea. ED Past Medical Hx - Past Medical History Previous Medical History?: Yes Hx Diabetes: Yes Hx HIV: No - Surgical History Past Surgical History?: No - Social History Smoking Status: Current Some Day Smoker Substance Use Type: None - Medications Home Medications: Home Medications Medication Instructions Recorded Confirmed Last Taken Type Insulin Detemir [Levemir VIAL] 20 unit SQ DAILY 11/17/16 11/17/16 Unknown History Insulin Detemir [Levemir] 20 units SUB-Q QHS #30 units 11/20/16 Unknown Rx Insulin Lispro [HumaLOG VIAL] 7 units SQ TID #30 vial 11/20/16 Unknown Rx Labetalol [Normodyne TAB] 200 mg PO BID #60 tablet 11/20/16 Unknown Rx Pantoprazole [Protonix TAB] 40 mg PO DAILY #30 tablet 11/20/16 Unknown Rx Metoclopramide [Reglan] 10 mg PO TID #90 tab 11/21/16 Unknown Rx Acetaminophen/Codeine [Tylenol #3] 1 tab PO Q6H PRN #10 tab 12/30/16 Unknown Rx Ondansetron [Zofran TAB] 4 mg PO Q8HR PRN #15 tablet 12/30/16 Unknown Rx ED Review of Systems ROS: Stated complaint: SYNCOPE Other details as noted in HPI Constitutional: denies: fever reports lightheadedness ENT: denies: throat or neck pain Respiratory: denies: cough, shortness of breath Cardiovascular: denies: chest pain Endocrine: denies unexplained weight loss or gain Gastrointestinal: denies: abdominal pain, nausea Genitourinary: denies: dysuria Musculoskeletal: denies: leg swelling Skin: denies: rash Neurological: reports headache Hematological/Lymphatic: denies: easy bleeding or easy bruising Psych: denies sadness or hopelessness Physical Exam - Physical Exam Vital Signs: Vital Signs 12/29/16 12/30/16 17:45 00:48 Temperature 98.6 F Pulse Rate 118 H 80 Respiratory 16 Rate Blood Pressure 102/60 Blood Pressure 118/54 [Left] O2 Sat by Pulse 100 97 Oximetry Physical Exam: General: well-nourished, well-developed, no acute distress Head: Normocephalic, atraumatic Eyes: normal sclera, PERRL, EOM intact ENT: Mucous membranes are pale and dry Neck: No neck stiffness, no cervical adenopathy Respiratory: Breath sounds equal bilaterally, no wheezing, rales, or rhonchi Cardio: S1 and S2 present, no murmurs, rubs, gallops, capillary refill is delayed Abdomen: Normoactive bowel sounds, soft abdomen, no rigidity, no guarding or rebound tenderness Chest WALL/Back: No tenderness to palpation of the chest wall, no CVA tenderness with percussion Musc: No pitting edema Skin: No rash Neuro: alert oriented x4, normal cognition, speech normal, no facial drooping, no uvula or tongue deviation on protrusion, no deficit with rotation of neck or shoulder shrug, no obvious gross motor deficit in the upper or lower extremities with flexion or extension at the shoulder, elbow, wrist, hip, knee, or ankle bilaterally, no obvious gross sensation deficit, 2+ symmetric reflexes on DTR testing, no coordination deficit with [id number] or [id number] testing, romberg negative, patient able to to ambulate without abnormal gait Psych: Normal affect ED Course Vital Signs 12/29/16 12/30/16 17:45 00:48 Temperature 98.6 F Pulse Rate 118 H 80 Respiratory 16 Rate Blood Pressure 102/60 Blood Pressure 118/54 [Left] O2 Sat by Pulse 100 97 Oximetry ED Medical Decision Making - Lab Data Result diagrams: 12/29/16 17:58 12/29/16 17:58 - Medical Decision Making The patient was seen and examined by myself. The patient is placed on a ekg monitor tech and continuous pulse ox. On initial evaluation, the patient was found to be in no distress, with tachycardia and dehydration on exam. Evaluation orders are placed. IV access is established and the patient is given 1 L normal saline fluid bolus for treatment of his dehydration and a tablet of [place] for his pain. Lab results revealed elevated glucose of 346, and elevated lactic acid, consistent with dehydration findings on exam, and otherwise labs were non-concerning including normal bicarbonate level, and normal pH of 7.4 on ABG, not consistent with DKA. The patient is given 10 units IV insulin for treatment of hyperglycemia. CT scan of the head is negative for acute intracranial disease process. The patient was reevaluated and reported that his symptoms were completely resolved. On reexamination the patient's found to have decrease in blood sugar <250, and resolution of tachycardia. The patient is stable for discharge with outpatient follow-up. The patient is given follow-up and return instructions. The patient expressed understanding and agreed with the plan. The patient is discharged in stable condition. Critical care attestation.: If time is entered above; I have spent that time in minutes in the direct care of this critically ill patient, excluding procedure time. ED Disposition Clinical Impression: Dehydration, Acute hyperglycemia, Orthostatic lightheadedness Acute nonintractable headache Qualifiers: Headache type: tension-type Qualified Code(s): G44.209 - Tension-type headache , unspecified, not intractable Disposition: - TO HOME OR SELFCARE Is pt being admited?: No Does the pt Need Aspirin: No Condition: Stable Instructions: Dehydration (ED), Syncope (ED), Acute Headache (ED), Lightheadedness (ED) Prescriptions: Acetaminophen/Codeine [Tylenol #3] 1 tab PO Q6H PRN #10 tab PRN Reason: Pain Ondansetron [Zofran TAB] 4 mg PO Q8HR PRN #15 tablet PRN Reason: Nausea Referrals: PRIMARY CARE, [Primary Care Provider] - 3-5 Days Time of Disposition: 01:32
[2016-12-30 01:55] LABS: Urine Drugs of Abuse Note Disclamer
[2016-12-30 01:58] LABS: ISTAT Base Excess 1; ISTAT DEVICE 0; ISTAT HCO3 25.5; ISTAT PCO2 40.2 (35-45); ISTAT PO2 83 (80-105); ISTAT SO2 96; ISTAT TCO2 27
[2016-12-30 02:16] LABS: Bilirubin,Urine NEG (Negative); Blood,Urine NEG (Negative); Ketones,Urine TR mg/dL (Negative); Leukocyte Esterase,Urine TR (Negative); Mucus,Urine FEW /HPF; Nitrite,Urine NEG (Negative); Protein,Urine <15 mg/dL mg/dL (Negative); Urobilinogen,Urine < 2.0 mg/dL (<2.0)
[2016-12-30 03:43] VITALS: BP 110/76
== END 2016-12-30 03:43 | disposition home or self-care (01) ==
LOC: ED 17:28
DX: E86.0 Dehydration (principal); R42 Dizziness and giddiness; G44.209 Tension-type headache, unspecified, not intractable; E11.65 Type 2 diabetes mellitus with hyperglycemia; Z79.4 Long term (current) use of insulin; F17.200 Nicotine dependence, unspecified, uncomplicated
CPT/HCPCS: 36415; 70450; 80053; 80307; 81001; 82140; 82803; 82962; 83735; 84443; 85025; 93005; 93010; 96361; 96374; 99285; G0480; J7030; 80320; J1815

== ENCOUNTER 2019-07-01 15:06 | Emergency (ER) | payer SELFPAY ==
[2019-07-01 15:17] VITALS: BP 153/84
--- NOTE | 2019-07-01 16:45 | Event Note ---
ED Screening Note Date of service: 07/01/19 Time: 16:45 ED Screening Note: 28 y o male presents with cc of penile d/c x 5 days denies f,c,n,v, pelc pain, scrotum pain or swelling This initial assessment/diagnostic orders/clinical plan/treatment(s) is/are subject to change based on patients health status, clinical progression and re- assessment by fellow clinical providers in the ED. Further treatment and workup at subsequent clinical providers discretion. Patient/guardian urged not to elope from the ED as their condition may be serious if not clinically assessed and managed. Initial orders include: Pt presents with a non-medical emergency Examination is normal, Vital sign are stable Pt given information for clinics to follow up with pcp for further treatment and evaluation Also discussed strict return precautions in detail with pt who verbalized understanding
== END 2019-07-01 17:00 | disposition left against medical advice (07) ==
LOC: ED 15:06
DX: R36.9 Urethral discharge, unspecified (principal); R10.9 Unspecified abdominal pain
CPT/HCPCS: 99282